=== PATIENT | male | born 1995 | race Two or more races ===

== ENCOUNTER 2018-12-04 19:00 | Emergency (ER) | payer SELFPAY ==
[2018-12-04] MEDS ORDERED: HYDROCODONE/ACETAMINOPHEN 5-325 MG (6 TAB/ER DISP) PO PRN (20:38)
[2018-12-04] MEDS ORDERED: CLINDAMYCIN HCL 150 MG CAPSULE PO ONE (20:39)
--- NOTE | 2018-12-04 20:42 | ER Document Report ---
HPI - HPI Patient complains to provider of: Dental infection Time Seen by Provider: 12/04/18 20:31 Onset/Duration: Persistent Quality of pain: Sharp Pain Level: 2 Context: Patient complains of dental pain with swelling to refer the mouth for the past 3 days. Patient denies any fever nausea or vomiting. Patient does not have a dentist that he sees regularly. Patient states he has been tasting purulent drainage from swelling to refer of mouth. Associated Symptoms: Other - Dental pain. denies: Earache, Fever Exacerbated by: Denies Relieved by: Denies Similar symptoms previously: No Recently seen / treated by doctor: No - ROS ROS below otherwise negative: Yes Systems Reviewed and Negative: Yes All other systems reviewed and negative - CONSTITUTIONAL Constitutional: DENIES: Fever, Chills - EENT EENT: DENIES: Ear Pain Notes: Dental pain, swelling to the roof of mouth - GASTROINTESTINAL Gastrointestinal: DENIES: Nausea, Patient vomiting - DERM Skin Color: Normal Past Medical History - General Information source: Patient - Social History Smoking Status: Never Smoker Frequency of alcohol use: Occasional Drug Abuse: None Family History: Reviewed & Not Pertinent - Medical History Medical History: Negative Surgical Hx: Negative Vertical Provider Document - CONSTITUTIONAL Agree With Documented VS: Yes Exam Limitations: No Limitations General Appearance: WD/WN, No Apparent Distress - HEENT HEENT: Atraumatic, Normocephalic Mouth Diagram: 1 - Tenderness, tooth able to be moved back and forth 2 - Draining abscess to refer of mouth with green purulent drainage 3 - Small ulceration to gingiva Notes: No trismus, no sublingual or submental swelling, no potential airway compromise - NECK Neck: Normal Inspection, Supple. negative: Lymphadenopathy-Left, Lymphadenopathy-Right - RESPIRATORY Respiratory: Breath Sounds Normal, No Respiratory Distress - CARDIOVASCULAR Cardiovascular: Regular Rate, Regular Rhythm - MUSCULOSKELETAL/EXTREMETIES Musculoskeletal/Extremeties: MAEW - NEURO Level of Consciousness: Awake, Alert, Appropriate - DERM Integumentary: Warm, Dry Course - Re-evaluation Re-evalutation: 12/04/18 20:40 Patient with draining abscess to refer of mouth. Patient encouraged to follow- up with dental care provider for further management at this time. Good return precautions discussed. Patient verbalized understanding and agrees with plan of care. - Vital Signs Vital signs: Temp Pulse Resp BP Pulse Ox 98.1 F 62 14 133/86 H 97 12/04/18 19:06 12/04/18 19:06 12/04/18 19:06 12/04/18 19:06 12/04/18 19:06 Discharge - Discharge Clinical Impression: Dental abscess Condition: Stable Disposition: HOME, SELF-CARE Instructions: Clindamycin (OM), Dental Infection or Abscess (OM) Additional Instructions: Return immediately for any new or worsening symptoms Followup with a dental care provider, call tomorrow to make a followup appointment Prescriptions: Clindamycin HCl [Cleocin 300 mg Capsule] 300 mg PO TID #21 capsule Naproxen [Naprosyn 250 Nmg Tablet] 1 tab PO BID #14 tablet Referrals: [facility] [Provider Group] - Follow up as needed Print Language: Turkish
[2018-12-04 20:52] VITALS: BP 119/84
== END 2018-12-04 20:52 | disposition home or self-care (01) ==
LOC: ER 19:00
DX: K04.7 Periapical abscess without sinus (principal); K06.8 Other specified disorders of gingiva and edentulous alveolar ridge; K08.89 Other specified disorders of teeth and supporting structures
CPT/HCPCS: 99282